=== PATIENT | female | born 1975 | race Caucasian/White ===

== ENCOUNTER 2024-04-15 05:15 | Day surgery (SDC) | payer OTHER ==
[2024-04-12 08:42] VITALS: BMI 25.7
[2024-04-15] MEDS ORDERED: MIDAZOLAM HCL 2 MG/2 ML SINGLE DOSE VIAL ONE (08:01)
[2024-04-15 08:32] VITALS: TEMP 97.3
[2024-04-15 09:05] VITALS: RESP 20
[2024-04-15 09:21] VITALS: BP 102/57; PULSE 77
== END 2024-04-15 09:15 | disposition home or self-care (01) ==
LOC: JASU-ENDO 05:15
PROVIDERS: ATTEND Internal Medicine Gastroenterology
PROC: 0DJD8ZZ Inspection of Lower Intestinal Tract, Via Natural or Artificial Opening Endoscopic (ICD-10-PCS; principal; 2024-04-15 08:00)
DX: Z12.11 Encounter for screening for malignant neoplasm of colon (principal); K57.30 Diverticulosis of large intestine without perforation or abscess without bleeding; Z86.010 Personal history of colon polyps; Z80.0 Family history of malignant neoplasm of digestive organs; Z83.719 Family history of colon polyps, unspecified
CPT/HCPCS: 81025